=== PATIENT | male | born 1990 | race Caucasian/White ===

== ENCOUNTER 2018-12-27 00:11 | Emergency (ER) | payer OTHER ==
[~2018-12-27] VITALS: Ht 175.3 cm; Wt 86.2 kg
[2018-12-27] MEDS ORDERED: OMEPRAZOLE20 MG PO (00:26)
[2018-12-27] MEDS ORDERED: SERT100 PO (00:26)
[2018-12-27] MEDS ORDERED: Indomethacin50 MG PO (00:27)
[2018-12-27] MEDS ORDERED: TOPI100 PO (00:28)
[2018-12-27] MEDS ORDERED: CYCL10 PO (00:28)
[2018-12-27] MEDS ORDERED: Benadryl 50 mg50 MG PO (00:29)
[2018-12-27] MEDS ORDERED: Prednisone20 MG PO (01:50)
== END 2018-12-27 02:05 | disposition home or self-care (01) ==
LOC: ER 00:11
DX: M77.42 Metatarsalgia, left foot (principal); M79.675 Pain in left toe(s); F32.9 Major depressive disorder, single episode, unspecified; J45.909 Unspecified asthma, uncomplicated; Z88.0 Allergy status to penicillin; Z79.899 Other long term (current) drug therapy
CPT/HCPCS: 73630; 99283-25; J7512

== ENCOUNTER → 2019-03-04 | Outpatient (CLI) | payer OTHER ==
[~2019-03-04] MED LIST: Benadryl 50 mg50 MG PO; CYCL10 PO; Indomethacin50 MG PO; OMEPRAZOLE20 MG PO; Prednisone20 MG PO; SERT100 PO; TOPI100 PO
== END | disposition home or self-care (01) ==
LOC: LAB SHORT 12:30 → LAB 12:30
DX: R31.9 Hematuria, unspecified (principal)
CPT/HCPCS: 87086

== ENCOUNTER 2019-06-02 15:16 | Inpatient (IN) | payer OTHER ==
[~2019-06-02] VITALS: Ht 170.2 cm; Wt 128.8 kg
[2019-06-02] MEDS ORDERED: LISI20 PO (15:45)
[2019-06-02] MEDS ORDERED: DIPHEDRYL PO (15:45)
[2019-06-02] MEDS ORDERED: Hydroxyzine HCl50 MG PO (15:45)
[2019-06-02] MEDS ORDERED: Zoloft100 MG PO (15:45)
[2019-06-02] MEDS ORDERED: TOPI15C (15:46)
[2019-06-02] MEDS ORDERED: OMEPRAZOLE20 MG (15:46)
[2019-06-02] MEDS ORDERED: TRIDERM28.4 GM (15:46)
[2019-06-02 15:48] LABS: BASOPHILS ABSOLUTE AUTO 0.08 K/mm3 (0.00-0.23); BASOPHILS PERCENT AUTO 0 % (0-2); EOSINOPHILS PERCENT AUTO 0 % (0-6); Hematocrit 51.4 % (37.0-53.0); Hemoglobin 16.7 g/dL (13.5-17.5); IMMATURE GRAN ABSOLUTE AUTO 0.24 K/mm3 (0.00-0.10); IMMATURE GRAN PERCENT AUTO 1 % (0-1); LYMPHOCYTES ABSOLUTE AUTO 1.06 K/mm3 (0.84-5.20); LYMPHOCYTES PERCENT AUTO 4 % (21-46); MONOCYTES PERCENT AUTO 4 % (4-13); Mean Corpuscular HGB 28.3 pg (26.0-34.0); Mean Corpuscular HGB Conc 32.5 g/dL (31.5-36.5); Mean Corpuscular Volume 87 fL (80-100); Mean Platelet Volume 9.7 fL (9.1-12.4); NEUTROPHILS ABSOLUTE AUTO 23.82 K/mm3 (1.96-9.15); NEUTROPHILS PERCENT AUTO 91 % (41-73); Platelet Count 329 K/mm3 (150-400); RDW Coefficient Variation 13.5 % (11.7-14.2); RDW Standard Deviation 43.3 fL (35.1-46.3); Red Blood Cell Count 5.91 M/mm3 (4.30-5.90)
[2019-06-02 16:03] LABS: Bilirubin, Total 0.6 mg/dL (0.1-1.0); Bun/Creatinine Ratio 7.5 (12.0-20.0); Calcium, Blood 9.4 mg/dL (8.5-10.1); Creatinine, Blood 3.47 mg/dL (0.60-1.20); Globulin, Blood 4.2 g/dL (2.2-4.0); Potassium, Blood 4.6 mmol/L (3.5-5.5); Total Protein, Blood 8.2 g/dL (6.4-8.2)
[2019-06-02 16:56] LABS: Source, Urine Clean Catch
[2019-06-02 17:01] LABS: Blood, Urine 3+ (Neg); Glucose Qualitative, Urine 1+ (Neg); Ketones, Urine 1+ (Neg); Leukocyte Esterase, Urine 1+ (Neg); Nitrite, Urine Pos (Neg); Protein, Urine 4+ (Neg); Specific Gravity, Urine 1.025 (1.003-1.022); Urobilinogen, Urine 1+ (Normal)
[2019-06-02 17:11] LABS: Bilirubin, Urine 2+ (Neg)
[2019-06-02 17:35] LABS: Appearance, Urine Cloudy (Clear); Color, Urine Amber (P-Yellow)
[2019-06-02 17:55] LABS: Amorphous Light (0-Heavy); Bacteria Many /hpf; Calcium Oxalate Crystals Mod /hpf; Squamous Epithelial Cells Mod /hpf (Few)
[2019-06-02 18:53] LABS: International Normalized Ratio 1.05; Prothrombin Time Results 11.1 Sec (9.7-11.5)
[2019-06-02 19:27] LABS: BASOPHILS ABSOLUTE AUTO 0.06 K/mm3 (0.00-0.23); BASOPHILS PERCENT AUTO 0 % (0-2); EOSINOPHILS ABSOLUTE AUTO 0.01 K/mm3 (0.00-0.68); EOSINOPHILS PERCENT AUTO 0 % (0-6); Hematocrit 50.3 % (37.0-53.0); Hemoglobin 16.1 g/dL (13.5-17.5); IMMATURE GRAN ABSOLUTE AUTO 0.17 K/mm3 (0.00-0.10); IMMATURE GRAN PERCENT AUTO 1 % (0-1); LYMPHOCYTES ABSOLUTE AUTO 1.35 K/mm3 (0.84-5.20); LYMPHOCYTES PERCENT AUTO 6 % (21-46); MONOCYTES ABSOLUTE AUTO 0.83 K/mm3 (0.16-1.47); MONOCYTES PERCENT AUTO 4 % (4-13); Mean Corpuscular Volume 88 fL (80-100); Mean Platelet Volume 9.8 fL (9.1-12.4); NEUTROPHILS ABSOLUTE AUTO 20.65 K/mm3 (1.96-9.15); NEUTROPHILS PERCENT AUTO 90 % (41-73); Platelet Count 296 K/mm3 (150-400); RDW Coefficient Variation 13.6 % (11.7-14.2); RDW Standard Deviation 43.7 fL (35.1-46.3); Red Blood Cell Count 5.74 M/mm3 (4.30-5.90); White Blood Cell Count 23.07 K/mm3 (4.00-11.30)
--- NOTE | 2019-06-02 21:55 | NUR ---
REFLUX LACTIC ACID ELEVATED UP TO 2.7. CALL PALCED TO MD, CURRENT VS AND ORDERS REV W/MD. PLAN TO CONT CURRENT ORDERS.
[2019-06-02 22:43] LABS: Adenovirus F 40/41 Not Detected (NOT DETECT); Astrovirus Not Detected (NOT DETECT); Campylobacter Sp Detected (NOT DETECT); Cryptosporidium Not Detected (NOT DETECT); Cyclospora Cayetanensis Not Detected (NOT DETECT); E. Coli O157 Not Detected (NOT DETECT); Entamoeba Histolytica Not Detected (NOT DETECT); Enteroaggregative E. coli-EAEC Not Detected (NOT DETECT); Enteropathogenic E. coli-EPEC Not Detected (NOT DETECT); Enterotoxigenic E. coli-ETEC Not Detected (NOT DETECT); Giardia Lamblia Not Detected (NOT DETECT); Norovirus GI/GII Not Detected (NOT DETECT); Plesiomonas Shigelloides Not Detected (NOT DETECT); Rotavirus A Not Detected (NOT DETECT); Salmonella Sp Detected (NOT DETECT); Sapovirus Not Detected (NOT DETECT); Shiga Toxin-prod E. coli-STEC Not Detected (NOT DETECT); Shigella/Enteroin E. coli-EIEC Not Detected (NOT DETECT); Vibrio Cholerae Not Detected (NOT DETECT); Vibrio Sp Not Detected (NOT DETECT); Yersinia Enterocolitica Not Detected (NOT DETECT)
[2019-06-03 04:50] LABS: BASOPHILS ABSOLUTE AUTO 0.05 K/mm3 (0.00-0.23); BASOPHILS PERCENT AUTO 0 % (0-2); EOSINOPHILS PERCENT AUTO 0 % (0-6); Hematocrit 46.2 % (37.0-53.0); IMMATURE GRAN ABSOLUTE AUTO 0.06 K/mm3 (0.00-0.10); IMMATURE GRAN PERCENT AUTO 0 % (0-1); LYMPHOCYTES ABSOLUTE AUTO 1.02 K/mm3 (0.84-5.20); LYMPHOCYTES PERCENT AUTO 7 % (21-46); MONOCYTES ABSOLUTE AUTO 0.88 K/mm3 (0.16-1.47); MONOCYTES PERCENT AUTO 6 % (4-13); Mean Corpuscular HGB 27.9 pg (26.0-34.0); Mean Corpuscular HGB Conc 32.5 g/dL (31.5-36.5); Mean Corpuscular Volume 86 fL (80-100); Mean Platelet Volume 9.8 fL (9.1-12.4); NEUTROPHILS ABSOLUTE AUTO 12.02 K/mm3 (1.96-9.15); NEUTROPHILS PERCENT AUTO 86 % (41-73); Platelet Count 256 K/mm3 (150-400); RDW Coefficient Variation 13.4 % (11.7-14.2); RDW Standard Deviation 42.4 fL (35.1-46.3); Red Blood Cell Count 5.38 M/mm3 (4.30-5.90); White Blood Cell Count 14.03 K/mm3 (4.00-11.30)
[2019-06-03 05:08] LABS: Albumin, Blood 3.1 g/dL (3.4-5.0); Albumin/Globulin Ratio 0.8 (0.8-1.8); Bilirubin, Total 0.4 mg/dL (0.1-1.0); Bun/Creatinine Ratio 15.8 (12.0-20.0); Calcium, Blood 8.6 mg/dL (8.5-10.1); Creatinine, Blood 1.65 mg/dL (0.60-1.20); Globulin, Blood 3.7 g/dL (2.2-4.0); Potassium, Blood 4.4 mmol/L (3.5-5.5); Total Protein, Blood 6.8 g/dL (6.4-8.2)
--- NOTE | 2019-06-03 06:39 | NUR ---
PT VSS T/O NIGHT. PT HAD NO C/O N/V, CONT TO HAVE SEVERAL LOOSE STOOLS. PT DENIED PAIN W/URINATION. PT FRANKIE CLEAR LIQ PO. IVF CONT PER ORDERS. PT UP IN ROOM W/SBA PRN. PT USING CALL LIGHT FOR ASSISTANCE, WILL CONT TO MONITOR UNTIL REP GIVEN TO ONCOMING RN.
[2019-06-03] MEDS ORDERED: ACET500 PO (10:45)
[2019-06-03] MEDS ORDERED: FAMO20 PO (10:46)
[2019-06-03] MEDS ORDERED: Culturelle1 CAP PO (10:47)
[2019-06-03] MEDS ORDERED: LEVOFLOXACIN750 MG PO (10:47)
[2019-06-03] MEDS ORDERED: ONDA4ODT MM (10:48)
[2019-06-03] MEDS ORDERED: GUAI600T33 PO (10:48)
[2019-06-03] MEDS ORDERED: TYLECOD3 PO (10:49)
--- NOTE | 2019-06-03 11:29 | NUR ---
DISCHARGE PT EDUCATED ON AND RECEIVED DC INSTRUCTIONS AND VERBALIZED AN UNDERSTANDING. HARD RX FOR TYLENOL #3 GIVEN TO PT AND ALL OTHER NEW RX FAXED OVER TO [facility] PER PT REQUEST. IVS DC'D AND TELE BOX RETURNED TO PCU. PT GETTING DRESSED AND GATHERING ALL PERSONAL BELONGINGS AND WAITING FOR RIDE HOME.
== END 2019-06-03 12:21 | disposition home or self-care (01) | DRG 872 ==
LOC: ER 15:16 → ERHOLD 17:37 → SURS 20:35
PROVIDERS: Physician Assistant; ADMIT Family Medicine
DX: A02.1 Salmonella sepsis (principal); N17.9 Acute kidney failure, unspecified; D68.61 Antiphospholipid syndrome; N39.0 Urinary tract infection, site not specified; Z68.42 Body mass index [BMI] 45.0-49.9, adult; R65.20 Severe sepsis without septic shock; I95.9 Hypotension, unspecified; I10 Essential (primary) hypertension; F90.9 Attention-deficit hyperactivity disorder, unspecified type; F32.9 Major depressive disorder, single episode, unspecified; E66.9 Obesity, unspecified; K52.9 Noninfective gastroenteritis and colitis, unspecified; Z86.718 Personal history of other venous thrombosis and embolism; Z88.0 Allergy status to penicillin; Z88.8 Allergy status to other drugs, medicaments and biological substances
CPT/HCPCS: 0097U; 36415; 80053; 81001; 83605; 83690; 84145; 85025; 85610; 85730; 87040; 87086; 93005; 93010; 96361; 96374; 99285-25; J1650; J1956; J2405; J7120

== ENCOUNTER 2019-07-20 05:41 | Inpatient (IN) | payer OTHER ==
[~2019-07-20] VITALS: Ht 177.8 cm; Wt 128.8 kg
[~2019-07-20 05:41] MED LIST changes: +ACET500 PO; +Culturelle1 CAP PO; +DIPHEDRYL PO; +FAMO20 PO; +GUAI600T33 PO; +Hydroxyzine HCl50 MG PO; +LEVOFLOXACIN750 MG PO; +LISI20 PO; +OMEPRAZOLE20 MG; +ONDA4ODT MM; +TOPI15C; +TRIDERM28.4 GM; +TYLECOD3 PO; +Zoloft100 MG PO
[2019-07-20 05:59] LABS: PCO2 Arterial 38.2 mmHg (35-45); PO2 Arterial 128 mmHg (80-100); pH Blood Arterial 7.31 (7.35-7.45)
[2019-07-20 06:00] LABS: Calcium, Ionized (POC) 1.18 mmol/L (1.10-1.46); Chloride (POC) 103 mmol/L (98-108); Creatinine (POC) 0.9 mg/dL (0.8-1.3); Glucose (ISTAT POC) 137 mg/dL (70-99); Hemoglobin (POC) 17.3 g/dL (13.5-17.5); Potassium (POC) 3.3 mmol/L (3.5-5.5); Sodium (POC) 139 mmol/L (135-148); Total CO2 (POC) 20 mmol/L (21-32)
[2019-07-20 06:05] LABS: BASOPHILS ABSOLUTE AUTO 0.05 K/mm3 (0.00-0.23); BASOPHILS PERCENT AUTO 0 % (0-2); EOSINOPHILS ABSOLUTE AUTO 0.08 K/mm3 (0.00-0.68); EOSINOPHILS PERCENT AUTO 1 % (0-6); Hematocrit 50.3 % (37.0-53.0); Hemoglobin 16.7 g/dL (13.5-17.5); IMMATURE GRAN ABSOLUTE AUTO 0.04 K/mm3 (0.00-0.10); IMMATURE GRAN PERCENT AUTO 0 % (0-1); LYMPHOCYTES ABSOLUTE AUTO 3.19 K/mm3 (0.84-5.20); LYMPHOCYTES PERCENT AUTO 26 % (21-46); MONOCYTES PERCENT AUTO 7 % (4-13); Mean Corpuscular HGB Conc 33.2 g/dL (31.5-36.5); Mean Corpuscular Volume 84 fL (80-100); Mean Platelet Volume 10.1 fL (9.1-12.4); NEUTROPHILS ABSOLUTE AUTO 8.11 K/mm3 (1.96-9.15); NEUTROPHILS PERCENT AUTO 66 % (41-73); Platelet Count 283 K/mm3 (150-400); RDW Coefficient Variation 12.5 % (11.7-14.2); Red Blood Cell Count 5.97 M/mm3 (4.30-5.90); White Blood Cell Count 12.27 K/mm3 (4.00-11.30)
[2019-07-20 06:21] LABS: Source, Urine Catheter
[2019-07-20 06:25] LABS: Bilirubin, Urine Neg (Neg); Blood, Urine 5+ (Neg); Glucose Qualitative, Urine Neg (Neg); Ketones, Urine Neg (Neg); Leukocyte Esterase, Urine 1+ (Neg); Nitrite, Urine Neg (Neg); Protein, Urine 3+ (Neg); Specific Gravity, Urine 1.015 (1.003-1.022); Urobilinogen, Urine NORM (Normal)
[2019-07-20 06:26] LABS: Appearance, Urine Hazy (Clear); Color, Urine Red (P-Yellow)
[2019-07-20 06:29] LABS: Alanine Aminotransfer (ALT/SGP 39 U/L (12-78); Albumin, Blood 3.8 g/dL (3.4-5.0); Alk Phos 106 U/L (50-136); Anion Gap 12 mmol/L (6-16); Aspartate Aminotrans (AST/SGOT 31 U/L (12-37); Bilirubin, Total 0.5 mg/dL (0.1-1.0); Blood Urea Nitrogen 20 mg/dL (8-24); Bun/Creatinine Ratio 24.7 (12.0-20.0); CO2, Blood 20 mmol/L (21-32); CPK Creatine Kinase 156 U/L (39-308); Calcium, Blood 8.7 mg/dL (8.5-10.1); Chloride, Blood 106 mmol/L (98-108); Creatinine, Blood 0.81 mg/dL (0.60-1.20); Ethanol (Alcohol), Blood, Med <3 mg/dL; Globulin, Blood 3.9 g/dL (2.2-4.0); Glomerular Filtration Rate >60 (60-); Glucose, Blood 128 mg/dL (70-99); Magnesium, Blood 1.9 mg/dL (1.6-2.4); Potassium, Blood 3.2 mmol/L (3.5-5.5); Salicylate <1.7 mg/dL (2.8-20.0); Sodium, Blood 138 mmol/L (136-145); Total Protein, Blood 7.7 g/dL (6.4-8.2); Troponin I <0.015 ng/mL (0.000-0.040)
[2019-07-20 06:39] LABS: Acetaminophen, Random <2.0 ug/mL (10.0-30.0); Creatine Kinase MB <1.0 ng/mL (0.0-3.6); Creatine Kinase MB Index Unable to Calculate (0.0-4.0)
[2019-07-20 06:50] LABS: U Amphetamine Screen Not Detected; U Barbituate Screen Not Detected; U Benzodiazapine Screen Not Detected; U Buprenorphine Screen Not Detected; U Cannabinoids Screen Not Detected; U Cocaine Screen Not Detected; U Methadone Screen Not Detected; U Methamphetamine Screen Not Detected; U Opiates Screen Not Detected; U Oxycodone Screen Not Detected; U Phencyclidine Screen Not Detected; U Propoxyphene Screen Not Detected
[2019-07-20 06:59] LABS: Bacteria Mod /hpf; Red Blood Cells, Urine TNTC /hpf (0-2); Squamous Epithelial Cells Not Seen /hpf (Few)
--- NOTE | 2019-07-20 07:12 | NUR ---
PT TO ICU @ 0635 WITH ED RN AND RT. PT INTUBATED AND SEDATED, VENT SET TO AC 16/500/5/35%, O2 SATURATIONS 95%. MONTOR SHOWS SINUS TACH, HR 110-130'S, PT HYPTERTENSIVE, SBP 160'S. PT AFEBRILE. OG IN PLACE, CLAMPED. STONE IN PLACE DRAINING YELLOW URINE.
--- NOTE | 2019-07-20 07:16 | NUR ---
REPORT GIVEN TO ADENIKE JOHNSON.
--- NOTE | 2019-07-20 07:31 | NUR ---
CALLED POISON CONTROL AND LET THEM KNOW OF SALICYLATE AND ACETAMINOPHEN LEVEL. NO SUGGESTIONS AT THIS TIME.
--- NOTE | 2019-07-20 08:30 | NUR ---
INITIAL ASSESSMENT PATIENT INTUBATED AND SEDATED. PATIENT RESPONDING TO CARE AND PAINFUL STIMULI. PATIENT HAS STRONG, GROSS MOVEMENTS OF EXTREMITIES. PATIENT HAS NO SIGNS OF PAIN OR DISCOMFORT NOTED AT THIS TIME. PATIENT AFEBRILE. PATIENT SATTING 90% AND GREATER ON VENT SETTINGS OF AC 16, TV 500, PEEP 5, 35% FIO2. LUNG SOUNDS CLEAR THROUGHOUT. PATIENT IN ST, HR 1-TEENS TO 120S. BP STABLE. PULSES STRONG. ABDOMEN SOFT, NONDISTENDED, WITH HYPOACTIVE BS NOTED. DATE OF LAST BM UNKNOWN. OG TO LIS- NO DRAINAGE NOTED. TEMP PROBE STONE IN PLACE; DRAINING CAM COLORED URINE. SKIN APPEARS WNL. PROPOFOL INFUSING AT 50 MCG/ KG/ MINUTE, NS INFUSING AT 100 MLS/ HOUR. BED LOW, CALL LIGHT IN REACH. WILL CONTINUE TO MONITOR PATIENT FREQUENTLY THROUGHOUT SHIFT.
--- NOTE | 2019-07-20 09:00 | NUR ---
PATIENT'S MOTHER, JESUS REDDY, AND ANOTHER FAMILY MEMBER SHOWED UP TO CHECK ON PATIENT. MOTHER STATED THAT THE GENETICS PHYSICIAN SHOWED UP AT HER HOUSE EARLY THIS AM "BANGING ON HER DOOR". MOTHER STATED SHE DID NOT KNOW WHY GENETICS PHYSICIAN THERE BUT FOUND OUT THAT THE PATIENT MUST HAVE CALLED THEM CLAIMING THAT HE TOOK SOME PILLS. PATIENT'S MOTHER UPDATED ON PATIENT CONDITION. MOTHER STAYED FOR SHORT TIME AND STATED SHE WOULD BE BACK LATER AFTER WORK TO CHECK BACK UP ON PATIENT.
--- NOTE | 2019-07-20 09:38 | NUR ---
SPOKE WITH POISON CONTROL. UPDATED ON PATIENT CONDITION. POISON CONTROL RECOMMENDED ANOTHER EKG THIS AFTERNOON. POISON CONTROL ALSO STATED TO KEEP MAG OVER 2 AND POTASSIUM OVER 4. RECOMMENDED TO REPEAT ASA AND ACETAMINOPHEN LEVEL AGAIN AROUND 1000 THIS AM.
--- NOTE | 2019-07-20 11:30 | NUR ---
DR. KWON IN ROOM TO SEE PATIENT. UPDATED ON PATIENT STATUS. INFORMED THAT PATIENT WAS THE ONE THAT CALLED CHARGE MASTER SPECIALIST ABOUT HIS OVERDOSE. INFORMED THAT POISON CONTROL RECOMMENDS TO KEEP MAG LEVEL OVER 2 AND POTASSIUM LEVEL OVER 4. INFORMED THAT POTASSIUM LEVEL 3.3 THIS AM AND THAT PATIENT RECEIVING 40 MEQ KCL THIS AM. INFORMED THAT NO MAG LEVEL WAS ORDERED FOR THIS AM. STATED SHE WOULD ORDER FOR ANOTHER 20 MEQ KCL AND MAG NOW AND LEVELS CAN BE RECHECKED AGAIN TOMORROW AM. INFORMED THAT POISON CONTROL ALSO RECOMMENDED FOR REPEAT EKG THIS AFTERNOON WELL REPEAT ASA AND TYLENOL LEVELS. STATED NO NEED FOR ASA AND TYLENOL LEVEL REDRAWS BUT THAT WE WILL REPEAT EKG THIS AFTERNOON. STATED TO KEEP PATIENT SEDATED AND COMFORTABLE AND THAT NO WEAN OR SEDATION VACATION NEEDED IN AM SHE WILL MOST LIKELY EXTUBATE WHEN SHE GETS HERE TOMORROW AM.
--- NOTE | 2019-07-20 12:00 | NUR ---
PATIENT REMAINS INTUBATED AND SEDATED. PATIENT ON 45 MCG/ KG HOUR OF PROPOFOL. PATIENT AFEBRILE. PATIENT REMAINS SATTING 90% AND GREATER ON VENT SETTINGS OF AC 16, TV 500, PEEP 5, 25% FIO2. PATIENT IN SR, HR IN THE 90S. BP SOFT TO STABLE. STONE DRAINING CAM COLORED URINE WITH SEDIMENT NOTED. PATIENT RECEIVING MAG REPLACEMENT OF 2G FOR LEVEL OF 1.7. PATIENT HAS NO SIGNS OF PAIN OR DISCOMFORT AT THIS TIME. NO OTHER ACUTE CHANGES TO NOTE ON AT THIS TIME. WILL CONTINUE TO MONITOR.
[2019-07-20 12:06] LABS: Base Excess Venous -5.3 mmol/L; PCO2 Venous 31.9 mmHg (38-42); PO2 Venous 111 mmHg (38-42)
--- NOTE | 2019-07-20 13:42 | NUR ---
POISON CONTROL CALLED TO CHECK STATUS. UPDATED ON LAB RESULTS AND DOCTORS ORDERS.
--- NOTE | 2019-07-20 16:00 | NUR ---
PATIENT REMAINS INTUBATED AND SEDATED. PATIENT ON PROPOFOL AT 45 MCG/ KG/ MINUTE. PATIENT AFEBRILE. PATIENT REMAINS SATTING 90% AND GREATER ON SAME VENT SETTINGS. PATIENT IN SR, HR IN THE 80S. BP STABLE. NO OTHER ACUTE CHANGES TO NOTE ON AT THIS TIME. PATIENT APPEARS TO BE COMFORTABLE WITHOUT PAIN AT THIS TIME. WILL CONTINUE TO MONITOR.
--- NOTE | 2019-07-20 17:17 | NUR ---
CALLED AND INFORMED DR. KWON THAT EKG SHOWED INCREASE IN QTC FROM 436 TO 476. ORDERED FOR REPEAT EKG IN AM.
--- NOTE | 2019-07-20 18:37 | NUR ---
SHIFT SUMMARY PATIENT REMAINED INTUBATED AND SEDATED. PATIENT REMAINED RESPONDING TO NURSING CARE AND PAINFUL STIMULI. PATIENT CONTINUED TO HAVE STRONG GROSS MOVEMENTS OF ALL EXTREMITIES. PATIENT REMAINED AFEBRILE. PATIENT GIVEN PRN FENTANYL FOR SIGNS OF PAIN. PATIENT REMAINED SATTING 90% AND GREATER ON AC 16, TV 500, PEEP 5, AND 25% FIO2. PATIENT SR TO ST, HR 90S TO 120S. BP REMAINED SOFT TO STABLE. PATIENT DID NOT HAVE BM THIS SHIFT. OG REMAINED TO LIS; NO DRAINAGE NOTED. STONE DRAINED ADEQUATE AMOUNT OF CAM COLORED URINE WITH SEDIMENT NOTED. SKIN REMAINED WNL. PATIENT REPOSITIONED Q2H. PROPOFOL INFUSING AT 45 MCG/ KG/ MINUTE, NS AT 100 MLS/ HOUR. PATIENT RECEIVED 80 MEQ KCL AND 2 G MAG THIS SHIFT. MOTHER HERE TO VISIT IN THE AM. REPORT WILL BE GIVEN TO ONCOMING DATA REVIEWER NURSE SHORTLY.
--- NOTE | 2019-07-20 21:00 | NUR ---
ASSUMPTION OF CARE ASSUMED CARE OF PT @ 1900. PT INTUBATED AND SEDATED, VENT SET TO AC 16/500/5/25%, LS CLEAR, O2 SATURATIONS MAINTAINED > 95%. MONITOR SHOWS SINUS RHYTHM, RATE 80'S, BP STABLE. PT BECOMES AGITATED WITH NURSING CARE, DOES NOT FOLLOW COMMANDS, PULLS AT RESTRAINTS, THIBODEAUX. OG TO INTERMITTENT SUCTION, NO OUTPUT AT THIS TIME. STONE DRAINING YELLOW URINE WITH SEDIMENT. PROPOFOL GTT INFUSING, SEE FLOWSHEET.
--- NOTE | 2019-07-20 21:45 | NUR ---
SPOKE WITH POISON CONTROL CENTER, UPDATED ON PTS CURRENT STATUS, VS, LABS, AND TREATMENTS.
[2019-07-21 03:35] LABS: BASOPHILS ABSOLUTE AUTO 0.05 K/mm3 (0.00-0.23); BASOPHILS PERCENT AUTO 1 % (0-2); EOSINOPHILS ABSOLUTE AUTO 0.22 K/mm3 (0.00-0.68); EOSINOPHILS PERCENT AUTO 3 % (0-6); Hematocrit 42.6 % (37.0-53.0); Hemoglobin 13.8 g/dL (13.5-17.5); IMMATURE GRAN ABSOLUTE AUTO 0.03 K/mm3 (0.00-0.10); IMMATURE GRAN PERCENT AUTO 0 % (0-1); LYMPHOCYTES PERCENT AUTO 25 % (21-46); MONOCYTES PERCENT AUTO 10 % (4-13); Mean Corpuscular HGB 27.9 pg (26.0-34.0); Mean Corpuscular HGB Conc 32.4 g/dL (31.5-36.5); Mean Corpuscular Volume 86 fL (80-100); NEUTROPHILS ABSOLUTE AUTO 5.47 K/mm3 (1.96-9.15); NEUTROPHILS PERCENT AUTO 62 % (41-73); Platelet Count 244 K/mm3 (150-400); RDW Coefficient Variation 13.2 % (11.7-14.2); RDW Standard Deviation 41.1 fL (35.1-46.3); Red Blood Cell Count 4.94 M/mm3 (4.30-5.90); White Blood Cell Count 8.87 K/mm3 (4.00-11.30)
[2019-07-21 03:58] LABS: Alanine Aminotransfer (ALT/SGP 28 U/L (12-78); Alk Phos 85 U/L (50-136); Anion Gap 8 mmol/L (6-16); Aspartate Aminotrans (AST/SGOT 15 U/L (12-37); Bilirubin, Total 0.5 mg/dL (0.1-1.0); Blood Urea Nitrogen 14 mg/dL (8-24); Bun/Creatinine Ratio 13.1 (12.0-20.0); CO2, Blood 20 mmol/L (21-32); Calcium, Blood 8.4 mg/dL (8.5-10.1); Chloride, Blood 115 mmol/L (98-108); Creatinine, Blood 1.07 mg/dL (0.60-1.20); Globulin, Blood 2.9 g/dL (2.2-4.0); Glomerular Filtration Rate >60 (60-); Glucose, Blood 88 mg/dL (70-99); Magnesium, Blood 2.4 mg/dL (1.6-2.4); Phosphorus, Blood 3.7 mg/dL (2.5-4.9); Potassium, Blood 3.8 mmol/L (3.5-5.5); Sodium, Blood 143 mmol/L (136-145); Total Protein, Blood 5.9 g/dL (6.4-8.2)
--- NOTE | 2019-07-21 06:03 | NUR ---
SHIFT SUMMARY PT REMAINS INTUBATED AND SEDATED, VENT SET TO AC 16/500/5/25%, O2 SATURATIONS MAINTAINED ABOVE 95%. MONITOR SHOWS SINUS RHYTHM, HR 70'S, BP STABLE, EKG COMPLETED THIS AM, SEE PTS CHART. TMAX 100.9, TYLENOL PROVIDED, PT NOW AFEBRILE. PT RESTS WELL WITH NO TO LOW STIMULATION BUT BECOMES VERY AGITATED WITH NURSING CARE, PULLS AT RESTRAINTS, DOES NOT FOLLOW COMMANDS, THIBODEAUX. NO OUTPUT FROM OG THIS SHIFT, SET TO INTERMITTENT SUCTION. PROPOFOL GTT INFUSING (SEE FLOWSHEET). MORNING LABS SHOWED LOW POTASSIUM, REPLACEMENT CURRENTLY INFUSING.
--- NOTE | 2019-07-21 08:00 | NUR ---
INITIAL ASSESSMENT PATIENT INTUBATED AND SEDATED. PATIENT RESPONDS TO NURSING CARE AND PAINFUL STIMULI. PATIENT AFEBRILE. NO SIGNS OF PAIN OR DISCOMFORT NOTED AT THIS TIME. PATIENT HAS STRONG GROSS MOVEMENTS. PATIENT SATTING 90% AND GREATER ON AC 16, TV 500, PEEP 5, FIO2 25%. LUNGS CLEAR THROUGHOUT. PATIENT IN SR, HR 70S TO 80S. BP STABLE. PULSES STRONG. QTC 485 THIS AM. ABDOMEN SOFT, NONDISTENDED, WITH HYPOACTIVE BS NOTED. OG TO LIS; NO DRAINAGE NOTED. STONE DRAINING CLOUDY, CAM COLORED URINE WITH SEDIMENT NOTED. SKIN WNL. NS TKO. PROPOFOL INFUSING AT 50 MCG/ KG/ MINUTE. PATIENT RECEIVING 40 MEQ KCL THIS AM FOR POTASSIUM OF 3.8, POISON CONTROL RECOMMENDED TO KEEP 4 OR ABOVE. BED LOW, CALL LIGHT IN REACH. WILL CONTINUE TO MONITOR PATIENT FREQUENTLY THROUGHOUT SHIFT.
--- NOTE | 2019-07-21 10:00 | NUR ---
DR. KWON UPDATED ON PATIENT CONDITION. INFORMED OF EKG QTC OF 485. INFORMED THAT PATIENT RECEIVED MULTIPLE FENTANYL PUSHES ON FLIGHT RADIO OFFICER FOR INCREASED AGITATION. INFORMED THAT POTASSIUM 3.8 THIS AM, PHOS 3.7, CALCIUM 8.4, AND MAG 2.4. DOCTOR INFORMED THAT PATIENT WAS GIVEN 40 MEQ KCL REPLACEMENT TODAY. NO ORDERS RECEIVED FOR FURTHER ELECTROLYTE REPLACEMENT FOR AM LAB RESULTS.
--- NOTE | 2019-07-21 11:26 | NUR ---
POISON CONTROL CALLED FOR UPDATE ON PATIENT. NO RECOMMENDATIONS AT THIS TIME.
--- NOTE | 2019-07-21 12:00 | NUR ---
PATIENT REMAINS INTUBATED AND SEDATED. PATIENT AFEBRILE. PATIENT REMAINS SATTING 90% AND GREATER ON SAME VENT SETTINGS. URINE FROM STONE HAS MORE DARK GREEN COLOR TO IT NOW. PATIENT IN SR, HR IN THE 70S. BP STABLE. PATIENT DOES NOT APPEAR IN PAIN OR UNCOMFORTABLE AT THIS TIME. NO OTHER ACUTE CHANGES TO NOTE ON AT THIS TIME. WILL CONTINUE TO MONITOR.
--- NOTE | 2019-07-21 13:30 | NUR ---
PATIENT EXTUBATED. PATIENT FOLLOWING SIMPLE COMMANDS. PATIENT SATTING 90% AND GREATER ON RA. VSS.
--- NOTE | 2019-07-21 13:30 | NUR ---
PATIENT'S MOTHER CALLED TO CHECK UP ON PATIENT JUST EXTUBATING. INFORMED THAT HE WAS BEING EXTUBATED RIGHT AT THAT MOMENT. MOTHER STATED SHE WOULD CALL BACK AGAIN TO CHECK ON PATIENT.
--- NOTE | 2019-07-21 14:36 | NUR ---
PATIENT RECEIVED FLU SHOT IN 2018.
--- NOTE | 2019-07-21 14:38 | NUR ---
SUICIDE RISK ASSESSMENT PERFORMED ON PATIENT. PATIENT ALERT AND ORIENTED X 4. PATIENT ASKED WHY HE WAS BROUGHT INTO THE HOSPITAL AND HE STATED "BECAUSE I TOOK A BUNCH OF PILLS BECAUSE I WANTED TO KILL MYSELF". PATIENT ASKED IF HE STILL FEELS LIKE KILLING HIMSELF AND HE STATED "YES". PATIENT ASKED WHY HE WANTS TO KILL HIMSELF AND HE STATED "BECAUSE I AM SAD AND NO ONE CARES ABOUT ME". PATIENT ASKED HOW LONG HE HAS FELT DEPRESSED AND WANTED TO HURT HIMSELF, PATIENT STATED "FOR A WHILE". PATIENT STATED THAT HE STOPPED TAKING HIS HOME DEPRESSION MEDS ABOUT A MONTH AGO BECAUSE "THEY DON'T WORK". PATIENT STATED HE HAS TRIED TO "CUT HIMSELF" AND TOOK MORE PILLS AROUND A WEEK AGO. DR. MCKEON CALLED AND INFORMED. PATIENT PLACED ON 2 MD HOLD. 1:1 SITTER PRESENT.
[2019-07-21] MEDS ORDERED: CYCL10 PO (15:20)
--- NOTE | 2019-07-21 16:00 | NUR ---
PATIENT ALERT AND ORIENTED X 4. PATIENT CALM, COOPERATIVE, WITH FLAT AFFECT. PATIENT CONTINUES TO FEEL SUICIDAL. PATIENT HAS STUTTERED SPEECH. PATIENT AFEBRILE. PATIENT HAS GOOD MUSCULAR STRENGTH WITH FULL ROM. PATIENT SATTING 90% AND GREATER ON RA. LUNGS CLEAR T/O. PATIENT IN SR, HR 70S TO 80S. BP STABLE. OG DC'D WHEN PATIENT EXTUBATED. STONE REMOVED. URINAL PLACED AT BEDSIDE. PATIENT HAS NO COMPLAINTS AT THIS TIME. WILL CONTINUE TO MONITOR.
--- NOTE | 2019-07-21 16:45 | NUR ---
TRIED TO CALL PATIENT'S MOTHER TO UPDATE HER ON PATIENT STATUS. PHONE NUMBER IS NOT A WORKING NUMBER.
--- NOTE | 2019-07-21 17:33 | NUR ---
SHIFT SUMMARY PATIENT INTUBATED THIS AM. PATIENT HAS SINCE BEEN EXTUBATED AND HAS BEEN DOING QUITE WELL. PATIENT ALERT AND ORIENTED X 4, CALM , COOPERATIVE. FLAT AFFECT NOTED. PATIENT HAS STUTTERED SPEECH (IS NOTED THAT THIS IS HIS NORMAL). EYES RED. PATIENT STATES THAT HE STILL WANTS TO KILL HIMSELF "BECAUSE HE IS SAD AND NO ONE CARES ABOUT HIM". PATIENT HAS REMAINED AFEBRILE. PATIENT STATES HE HAS CHRONIC BACK PAIN BUT HAS NOT COMPLAINED OF PAIN SINCE BEING EXTUBATED. PATIENT SATTING 90% AND GREATER ON RA. LUNGS CLEAR THROUGHOUT. PATIENT HAS REMAINED IN SR, HR 70S TO 80S. BP STABLE. LASTS QTC 485. NO BM THIS SHIFT. LAST BM ON THE PER PATIENT. PATIENT HAD BEDSIDE SWALLOW EVAL AND PASSED. PATIENT PLACED ON REGULAR DIET. PATIENT HAD ADEQUATE OUTPUT OF CLOUDY, GREEN/YELLOW URINE WITH SEDIMENT NOTED. SKIN WNL. PATIENT NOW ABLE TO REPOSITION HIMSELF. NS INFUSING TKO. PATIENT HAD 40 MEQ OF KCL THIS AM TO KEEP POTASSIUM UP TOWARD 4. PATIENT ON 2 MD HOLD. 1:1 SITTER PRESENT. PATIENT TO HAVE TELEPSYCH CONSULT AT 1900. PATIENT'S MOTHER IS AWARE THAT HE WAS EXTUBATED. PATIENT HAS NO COMPAINTS AT THIS TIME. PATIENT IS SITTING UP IN BED, EATING PUDDING, AND WATCHING TV. WILL CONTINUE TO MONITOR PATIENT FREQUENTLY UNTIL REPORT GIVEN TO ONCOMING IT CONSULTANT NURSE SHORTLY.
--- NOTE | 2019-07-21 17:46 | NUR ---
PATIENT'S MOTHER CALLED TO CHECK UP ON HIM. RECEIVED CORRECT NUMBER FROM MOTHER. MOTHER UPDATED ON PATIENT STATUS. INFORMED THAT PATIENT WILL HAVE TELEPSYCH CONSULT AT 1900 TONIGHT. MOTHER STATED SHE WOULD BE IN TO SEE PATIENT AROUND 2100 TONIGHT.
--- NOTE | 2019-07-21 21:00 | NUR ---
ASSUMPTION OF CARE ASSUMED CARE OF PT AT 1900, PT AWAKE IN BED LISTENING TO MUSIC ON HOSPITAL TV. ALERT AND ORIENTED TO SELF, EVENT, AND FOLLOWING DIRECTIONS, CALM AND COOPERATIVE. PT DENIES SI AT THIS TIME, STS HE HAS STRUGGLED WITH DEPRESSION FOR OVER A YEAR AND HAS MADE ONE PREVIOUS SUICIDE ATTEMPT APPROX 1 WEEK AGO BUT DID NOT SEEK TREATMENT AT THAT TIME. AT THIS TIME PT IS CONCERNED ABOUT MISSING WORK AND NOTIFYING BOSS OF HOSPITALIZATION. TELEPSYCH AT BEGINNING OF SHIFT WITH DR MAKI, EVALUATION IN CHART, DR MAKI RECOMENDS CONSULT FROM LACTATION SPECIALIST AND A FOLLOW UP PSYCH EVAL. PT IS VERY SOFT SPOKEN, SLOW TO RESPOND AND HAS A STUTTER WHICH MOTHER STS IS WORSE THAN NORMAL. PT O2 SATURATIONS > 95% ON RA, HR AND BP STABLE, PT AFEBRILE. TOLERATING PO INTAKE. MOM AND DAD TO ROOM FOR SHORT VISIT, PT INTERACTING WELL WITH FAMILY DURING VISIT. ONE ON ONE SITTER AT DOORWAY MONITORING PT.
--- NOTE | 2019-07-21 23:10 | NUR ---
RECEIVED CALL FROM POISON CONTROL, UPDATED ON PTS STATUS, RECOMENDATIONS REMAIN TO KEEP POTASSIUM AND MAG WNL.
[2019-07-22 06:13] LABS: Anion Gap 6 mmol/L (6-16); Blood Urea Nitrogen 12 mg/dL (8-24); Bun/Creatinine Ratio 12.5 (12.0-20.0); CO2, Blood 20 mmol/L (21-32); Calcium, Blood 8.6 mg/dL (8.5-10.1); Chloride, Blood 115 mmol/L (98-108); Creatinine, Blood 0.96 mg/dL (0.60-1.20); Glomerular Filtration Rate >60 (60-); Glucose, Blood 86 mg/dL (70-99); Magnesium, Blood 2.2 mg/dL (1.6-2.4); Potassium, Blood 3.7 mmol/L (3.5-5.5); Sodium, Blood 141 mmol/L (136-145)
--- NOTE | 2019-07-22 06:14 | NUR ---
SHIFT SUMMARY NO ACUTE EVENTS T/O SHIFT, PT CONTINUES TO DENY SI, REMAINS CALM, COOPERATIVE AND SOFT SPOKEN, RESTED WELL DURING NIGHT. TELEPSYCH AT BEGINNING OF SHIFT RECOMENDS FOLLOW UP PSYCH EVALUATION AND BACK ROLLER CONSULT, TELEPSYCH EVALUATION IN PTS CHART. O2 SATURATIONS MAINTAINED ABOVE 95% ON RA, MONITOR SHOWS SINUS RHYTHM, BP STABLE. PT TOLERATING PO INTAKE, INDEPENDENTLY VOIDS IN URINAL. STATUS CHANGE @ 0555 TO MED NO TELE, HIGH RISK SUICIDE PRECAUTIONS REMAIN AT THIS TIME, ONE ON ONE SITTER CONTINUES TO MONITOR PT.
--- NOTE | 2019-07-22 07:40 | NUR ---
ASSUMED CARE OF PT AT 0700. REPORT FROM RAINE JOHNSON. PT RESTING IN BED. WAKES c VERBAL STIMULI. C/O CHRONIC BACK PAIN. DENIES NEEDS FOR PAIN MEDS. PT A&OX 4. SOFT SPOKEN. C/O PAIN TO THROAT. ICE CHIPS PROVIDED. PT CALM AND COOPERATIVE, FLAT AFFECT. DENIES SI, STATES HE LIVES c MOTHER AND THIS IS A SAFE PLACE FOR HIM. 1:1 OBSERVATION CONTINUES. PLAN FOR [facility], SOCIAL SERVICE CONSULT, AND [facility] CONSULT TODAY. WILL CONTINUE TO MONITOR.
--- NOTE | 2019-07-22 12:37 | NUR ---
Safety Plan partially complete, as much as patient could engage. Pt has a stutter, and stopped talking at times as it appeared to be to difficul;t for him. 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 He did say he attempted suicide 1 week ago, but did not come to hospital, nor told anyone. He reports he does not remember how he got to hospital this time, and did not know if he told his parents of his OD. He did not tell parents of attempt of 1 week ago. He said "they would have tried to sop me if I told them".his He lives with parents and brother. Case reviewed with Christina, Return Clerk. Pt is inconsistent in the information he shares. Reviewed moving his meds or giving them to parents for safety. Also reviewed crisis phone numbers to call nicole divert his thinking from suicide thousht. He reports [facility] Chan at [facility] presribes his meds. Hi behavior appears very unpredictable, and he displays very poor insight. He cannot describe if his mood was worse than usual, or any other symptoms. Elin Byrd M.Ed., [facility]
--- NOTE | 2019-07-22 16:57 | NUR ---
SHIFT SUMMARY NO ACUTE CHANGES THIS SHIFT. PT c FLAT AFFECT. ANSWERS QUESTIONS APPROPRIATELY BUT GIVES SHORT ANSWERS. DOES NOT ELABORATE. NAYANA ALFARO AND ART IN TO SEE PT TODAY. PLAN FOR WATER SAFETY TEACHER TO LOOK FOR INPATIENT PLACEMENT. MOTHER, JESUS, INFORMED AND IN AGREEMENT c PLAN. REQUESTING THAT WE INFORM HER PRIOR TO TRANSPORT SO EITHER HER OR PT'S STEPFATHER CAN FOLLOW PT UP TO ACCEPTING HOSPITAL. [facility] STARTED TODAY. POISON CONTROL SIGNED OFF ON MEDICAL CARE. REPORT TO ONCOMING NURSE.
--- NOTE | 2019-07-22 17:32 | NUR ---
Per admit trigger, I was tasked to meet with Michael to provide education regarding advanced care plannin. As he is hospitalized for a suicide attempt, this referral seems inappropriate. I will remain available to pt and family.
[2019-07-23 04:04] LABS: Albumin, Blood 3.4 g/dL (3.4-5.0); Anion Gap 7 mmol/L (6-16); Blood Urea Nitrogen 15 mg/dL (8-24); Bun/Creatinine Ratio 15.9 (12.0-20.0); CO2, Blood 21 mmol/L (21-32); Calcium, Blood 9.1 mg/dL (8.5-10.1); Chloride, Blood 113 mmol/L (98-108); Creatinine, Blood 0.94 mg/dL (0.60-1.20); Glomerular Filtration Rate >60 (60-); Glucose, Blood 94 mg/dL (70-99); Phosphorus, Blood 3.4 mg/dL (2.5-4.9); Potassium, Blood 3.8 mmol/L (3.5-5.5); Sodium, Blood 141 mmol/L (136-145)
--- NOTE | 2019-07-23 05:09 | NUR ---
PT CONTINUES RESTING QUIETLY, DENIES NEEDS, VITALS REMAIN STABLE, NO ACUTE CHANGES THIS SHIFT, PLAN TO MOVE TO ROOM 348 THIS AM.
--- NOTE | 2019-07-23 06:04 | NUR ---
SHIFT SUMMARY PT TRANSFER FROM ICU 14, ASSUMED CARE OF PT @0630. NO ACUTE CHANGES. DENIES ANY CURRENT SI THOUGHTS OR PLANS. AOX4. VSS. DENIES N/V, DYSPNEA. REPORTS MILD SORE THROAT FROM BEING INTUBATED. WILL NOTIFY MOTHER OF PT TRANSFER. CALL LIGHT IN REACH & 1:1 SITTER IN FROM FOR HIGH RISK SI. WCTM.
--- NOTE | 2019-07-23 06:50 | NUR ---
NOTIFIED MOTHER JESUS OF ROOM TRANSFER TO [facility].
--- NOTE | 2019-07-23 17:39 | NUR ---
NO ACUTE CHANGES NOTED. PATIENT CONTINUES TO DENIE THOUGHTS OF HURTING HIMSELF. THE PATIENT HAS BEEN TAKEN OFF THE 1:1 SITTER. NO CURRENT COMPLAINTS OF PAIN OR DISCOMFORT NOTED. PATIENT JUST STATES HE IS TRIED AND HAS SPENT MOST OF THE DAY SLEEPING. NO OTHER ISSUES NOTED. WILL CONTINUE TO MONITOR FOR CHANGES.
--- NOTE | 2019-07-23 23:11 | NUR ---
LATE ENTRY EARLIER IN SHIFT PTS SISTER TAMMY CALLED & ASKED TO SPEAK TO PT. HOWEVER THIS FAMILY MEMBER IS NOT ON THE CALL LIST. THE PTS MOTHER & FATHER ASKED FOR US TO NOT GIVE OUT ANY INFORMATION TO THIS SISTER. MOTHER STATED SHE WOULD CALL THE SISTER BACK & TELL HER SHE IS NOT ON THE CALL LIST & ONLY FAMILY MEMEBER WHO KNOW THE SECRET PASS PHRASE ARE ALLOWED TO GET INFORMATION.
[2019-07-24 05:22] LABS: BASOPHILS ABSOLUTE AUTO 0.07 K/mm3 (0.00-0.23); BASOPHILS PERCENT AUTO 1 % (0-2); EOSINOPHILS ABSOLUTE AUTO 0.29 K/mm3 (0.00-0.68); EOSINOPHILS PERCENT AUTO 3 % (0-6); Hemoglobin 15.9 g/dL (13.5-17.5); IMMATURE GRAN ABSOLUTE AUTO 0.05 K/mm3 (0.00-0.10); IMMATURE GRAN PERCENT AUTO 1 % (0-1); LYMPHOCYTES ABSOLUTE AUTO 2.22 K/mm3 (0.84-5.20); LYMPHOCYTES PERCENT AUTO 22 % (21-46); MONOCYTES ABSOLUTE AUTO 0.78 K/mm3 (0.16-1.47); MONOCYTES PERCENT AUTO 8 % (4-13); Mean Corpuscular HGB Conc 33.1 g/dL (31.5-36.5); Mean Corpuscular Volume 85 fL (80-100); Mean Platelet Volume 9.9 fL (9.1-12.4); NEUTROPHILS PERCENT AUTO 66 % (41-73); Platelet Count 283 K/mm3 (150-400); RDW Coefficient Variation 13.2 % (11.7-14.2); RDW Standard Deviation 39.8 fL (35.1-46.3); Red Blood Cell Count 5.68 M/mm3 (4.30-5.90); White Blood Cell Count 9.91 K/mm3 (4.00-11.30)
[2019-07-24 05:51] LABS: Alanine Aminotransfer (ALT/SGP 45 U/L (12-78); Albumin, Blood 3.5 g/dL (3.4-5.0); Albumin/Globulin Ratio 0.8 (0.8-1.8); Alk Phos 101 U/L (50-136); Anion Gap 9 mmol/L (6-16); Aspartate Aminotrans (AST/SGOT 23 U/L (12-37); Bilirubin, Total 0.4 mg/dL (0.1-1.0); Blood Urea Nitrogen 18 mg/dL (8-24); Bun/Creatinine Ratio 21.1 (12.0-20.0); CO2, Blood 18 mmol/L (21-32); Calcium, Blood 9.3 mg/dL (8.5-10.1); Chloride, Blood 111 mmol/L (98-108); Creatinine, Blood 0.86 mg/dL (0.60-1.20); Globulin, Blood 4.2 g/dL (2.2-4.0); Glomerular Filtration Rate >60 (60-); Glucose, Blood 97 mg/dL (70-99); Potassium, Blood 3.7 mmol/L (3.5-5.5); Sodium, Blood 138 mmol/L (136-145); Total Protein, Blood 7.7 g/dL (6.4-8.2)
--- NOTE | 2019-07-24 06:25 | NUR ---
SHIFT SUMMARY AOX4. VSS. DENIES N/V OR DYSPNEA. REPORTED 7/10 CHRONIC PAIN IN JOINTS/BACK. STATES HE NORMALLY TAKES INDOMETHACIN & FLEXERIL FOR HIS CHRONIC PAIN, INFORMED PT HE WOULD PROBABLY NOT GET FLEXERIL WHILE BEING @HOSPITAL SINCE HE OD ON THAT MED. ASKED HOSPITALIST EVIE Rosales FOR SOMETHING FOR PAIN & RECIEVED A OT DOSE OF ULTRAM, WHEN I TOOK MED TO PT HE REPORTED HE NO LONGER NEEDED ANYTHING FOR PAIN & RATED HIS PAIN A 4/10 & STATED IT WAS TOLERABLE. PT DENIES ANY CURRENT SUICIDAL THOUGHTS OR PLANS. ON CAMERA SUPERVISION, CALL LIGHT IN REACH. TM.
[2019-07-24] MEDS ORDERED: THERA1 EACH PO (08:52)
--- NOTE | 2019-07-24 16:07 | NUR ---
ALERT. ORIENTED. COOPERATIVE. SLOW TO RESPOND. ON CAMERA. STS DOES NOT WISH TO HURT HIMSELF. NOTE FROM DR. ELI FOR PATIENTS WORK IS IN FRONT OF CHART. NO ACUTE CHANGES. WCTM.
--- NOTE | 2019-07-24 16:27 | NUR ---
REPORT TO YOSELIN AT [facility]. NOTIFIED MD TO FROM [facility] AND TO EXPECT A CALL. LUTHER TAYLOR NOTIFIED [facility] NEEDS MORE INFO AND SHE WILL FAX IT. PATIENT WILL POSSIBLY BE SENT TO [facility].
--- NOTE | 2019-07-24 19:55 | NUR ---
PT AND FAMILY WERE INTRODUCED TO ONCOMING NURSE. AFFECT WITHDRAWN BUT SMILING NURSE INTRODUCED HIMSELF. UNDERLYING CAUSE DISCUSSED, HIS SELF WORTH WAS EMPHASIZED. AND PT GAVE VERBAL CONTRACT OF NO SELF HARM TONIGHT. ADMINISTRATION IS WORKING ON COBRA DISCHARGE - SEE DOCUMENTATION FOR DETAILS. CALL LIGHT IN REACH. PT IN CONTINUOUS OBSERVATON.
--- NOTE | 2019-07-24 20:09 | NUR ---
WATCHING TV. REMAINS ON CLOSE OBSERVATON FOR SAFETY. GAVE VERBAL NO SELF HARM CONTRACT ALEXIS.
--- NOTE | 2019-07-24 22:25 | NUR ---
cobra discharge scheduled for about 0230 AM. Pt was accompanied to restroom to void, stated felt needed to have BM but the prune juice and apple juice he consumed earlier hasnt worked yet. Back in bed. No noted s/s of self harm voiced or indicated. will continue to monitor.
--- NOTE | 2019-07-25 02:26 | NUR ---
COBRA DISCHARGE TO [facility]. CALL FOR REPORT TO "ROBERT" RN AT [facility]. NOTIFIED OF SUICIDE ATTEMPT ON 07/30/19 - SEE DOCUMENTATION. ([phone]). ROBERT WAS NOTIFIED OF OD ATTEMPT, ALLERGIES, CURRENT MEDS AND THAT HE HAD TRAZADONE 100 MG AT HS PER AUG. VSS. BP 119/77, HR 108, R 16, T 98.7 F, O2 SATS 96% ON ROOM AIR. JUST BEFORE HE WAS PICKED UP WITH [facility] TRANSPORT, VOICED UNDERLYING REASONS OF OD ATTEMPT WAS THAT HE FELT "NO ONE CARED", BUT HAS SINCE REALIZED THAT PEOPLE DO CARE. VOICED HE INTENDED TO FOCUS ON THERAPY. SECURE TRANSPORT AT ROOM, CUSTODY OF PT GIVEN TO SAID TRANSPORTER. LEFT UNIT IN WHEELCHAIR WITH SAID TRANSPORTER.
--- NOTE | 2019-07-25 05:34 | NUR ---
ATTEMPTED TO CALL MOTHER RE PT DISCHRGE, BT UNABLE TO DUE TO INCORRECT NUMBER OF MOTHER IN [facility], NUMBER CALLED SEVERAL TIMES, BUT RESPONSE "THE NUMBER YOU HAVE CALLED IS NOT A WORKING NUMBER". CHARGE NURSE NOTIFIED. CALL THEN PLACED TO PLACE PT BEING TRANSFERRED TO [facility] IN [place], OR, "DINESH" [place] SHE WOULD HAVE HIM CALL HIS MOTHER WHEN HE ARRIVED.
== END 2019-07-25 02:51 | DRG 917 ==
LOC: ER 05:41 → ICUW 06:26 → MEDS 07-23 05:27 → ICUW 07-23 05:27 → MEDS 07-23 05:44
PROVIDERS: Emergency Medicine; Internal Medicine; Internal Medicine Pulmonary Disease; ADMIT Internal Medicine
PROC: 0BH17EZ Insertion of Endotracheal Airway into Trachea, Via Natural or Artificial Opening (ICD-10-PCS; principal; 2019-07-20)
PROC: 5A1945Z Respiratory Ventilation, 24-96 Consecutive Hours (ICD-10-PCS; 2019-07-20)
DX: T48.1X2A Poisoning by skeletal muscle relaxants [neuromuscular blocking agents], intentional self-harm, initial encounter (principal); J96.01 Acute respiratory failure with hypoxia; E87.2 Acidosis; D68.61 Antiphospholipid syndrome; T45.0X2A Poisoning by antiallergic and antiemetic drugs, intentional self-harm, initial encounter; Y92.9 Unspecified place or not applicable; F32.9 Major depressive disorder, single episode, unspecified; F90.9 Attention-deficit hyperactivity disorder, unspecified type; E66.9 Obesity, unspecified; J45.909 Unspecified asthma, uncomplicated; I10 Essential (primary) hypertension; Z68.37 Body mass index [BMI] 37.0-37.9, adult
CPT/HCPCS: 31500; 31720; 36415; 36600; 51702; 71045; 80047; 80048; 80053; 80069; 81001; 82550; 82553; 82803; 82947; 83605; 83690; 83735; 84100; 84443; 84484; 85014; 85025; 87086; 93005; 93010; 94002; 94003; 96361-59; 96374-59; 97110; 97116; 97162; 97530; 99291-25; C9113; G0480; J1650; J2704; J3010; J3475; J3480; J7030

== ENCOUNTER 2019-08-25 11:08 | Observation (INO) | payer OTHER ==
[~2019-08-25] VITALS: Ht 170.2 cm; Wt 127.0 kg
[~2019-08-25 11:08] MED LIST changes: -DIPHEDRYL PO; -Hydroxyzine HCl50 MG PO; -Indomethacin50 MG PO; -LISI20 PO; -ONDA4ODT MM; -Zoloft100 MG PO
[2019-08-25 12:00] LABS: Source, Urine Clean Catch
[2019-08-25 12:05] LABS: BASOPHILS ABSOLUTE AUTO 0.06 K/mm3 (0.00-0.23); BASOPHILS PERCENT AUTO 1 % (0-2); EOSINOPHILS ABSOLUTE AUTO 0.16 K/mm3 (0.00-0.68); EOSINOPHILS PERCENT AUTO 2 % (0-6); Hematocrit 50.5 % (37.0-53.0); Hemoglobin 16.5 g/dL (13.5-17.5); IMMATURE GRAN ABSOLUTE AUTO 0.02 K/mm3 (0.00-0.10); IMMATURE GRAN PERCENT AUTO 0 % (0-1); LYMPHOCYTES PERCENT AUTO 26 % (21-46); MONOCYTES ABSOLUTE AUTO 0.57 K/mm3 (0.16-1.47); MONOCYTES PERCENT AUTO 8 % (4-13); Mean Corpuscular HGB 27.5 pg (26.0-34.0); Mean Corpuscular HGB Conc 32.7 g/dL (31.5-36.5); Mean Corpuscular Volume 84 fL (80-100); NEUTROPHILS PERCENT AUTO 62 % (41-73); Platelet Count 250 K/mm3 (150-400); Red Blood Cell Count 5.99 M/mm3 (4.30-5.90); White Blood Cell Count 7.21 K/mm3 (4.00-11.30)
[2019-08-25 12:18] LABS: Bilirubin, Urine Neg (Neg); Blood, Urine 5+ (Neg); Glucose Qualitative, Urine Neg (Neg); Ketones, Urine Neg (Neg); Leukocyte Esterase, Urine Neg (Neg); Nitrite, Urine Neg (Neg); Protein, Urine 3+ (Neg); Specific Gravity, Urine 1.015 (1.003-1.022); Urobilinogen, Urine NORM (Normal); pH, Urine 6.5 (5.0-8.0)
[2019-08-25 12:27] LABS: Appearance, Urine Clear (Clear); Color, Urine Yellow (P-Yellow)
[2019-08-25 12:28] LABS: Red Blood Cells, Urine 25-50 /hpf (0-2)
[2019-08-25 12:29] LABS: Bacteria Few /hpf; Squamous Epithelial Cells Rare /hpf (Few)
[2019-08-25 12:30] LABS: Alanine Aminotransfer (ALT/SGP 36 U/L (12-78); Albumin, Blood 3.9 g/dL (3.4-5.0); Alk Phos 111 U/L (50-136); Anion Gap 4 mmol/L (6-16); Aspartate Aminotrans (AST/SGOT 28 U/L (12-37); Bilirubin, Total 0.5 mg/dL (0.1-1.0); Blood Urea Nitrogen 21 mg/dL (8-24); Bun/Creatinine Ratio 24.8 (12.0-20.0); CO2, Blood 28 mmol/L (21-32); Calcium, Blood 9.2 mg/dL (8.5-10.1); Chloride, Blood 108 mmol/L (98-108); Creatinine, Blood 0.85 mg/dL (0.60-1.20); Ethanol (Alcohol), Blood, Med <3 mg/dL; Globulin, Blood 3.8 g/dL (2.2-4.0); Glomerular Filtration Rate >60 (60-); Glucose, Blood 95 mg/dL (70-99); Potassium, Blood 4.2 mmol/L (3.5-5.5); Salicylate <1.7 mg/dL (2.8-20.0); Sodium, Blood 140 mmol/L (136-145); Total Protein, Blood 7.7 g/dL (6.4-8.2)
[2019-08-25 12:32] LABS: U Amphetamine Screen Not Detected; U Barbituate Screen Not Detected; U Benzodiazapine Screen Not Detected; U Buprenorphine Screen Not Detected; U Cannabinoids Screen Not Detected; U Cocaine Screen Not Detected; U Methadone Screen Not Detected; U Methamphetamine Screen Not Detected; U Opiates Screen Not Detected; U Oxycodone Screen Not Detected; U Phencyclidine Screen Not Detected; U Propoxyphene Screen Not Detected
[2019-08-25 12:40] LABS: Acetaminophen, Random <2.0 ug/mL (10.0-30.0)
[2019-08-25] MEDS ORDERED: Indomethacin50 MG PO (14:03)
[2019-08-25] MEDS ORDERED: DIPHEDRYL PO (14:04)
[2019-08-25] MEDS ORDERED: Hydroxyzine HCl50 MG PO (14:04)
[2019-08-25] MEDS ORDERED: LISI20 PO (14:05)
[2019-08-25] MEDS ORDERED: Zoloft100 MG PO (14:05)
[2019-08-25] MEDS ORDERED: CYCL10 PO (14:06)
[2019-08-25] MEDS ORDERED: THERA1 EACH PO (14:07)
[2019-08-25] MEDS ORDERED: ESOM20 PO (14:08)
[2019-08-25] MEDS ORDERED: CHLO50 PO (14:08)
[2019-08-25] MEDS ORDERED: QUET100 PO (14:09)
[2019-08-25] MEDS ORDERED: ONDA4ODT MM (14:10)
[2019-08-28] MEDS ORDERED: Vistaril50 MG PO (12:16)
[2019-08-28] MEDS ORDERED: Seroquel200 MG PO (12:16)
[2019-08-28] MEDS ORDERED: Indocin50 MG PO (12:16)
== END 2019-08-28 12:30 | disposition home or self-care (01) ==
LOC: ER 11:08 → EOR 11:37
PROVIDERS: ADMIT Emergency Medicine
DX: S61.512A Laceration without foreign body of left wrist, initial encounter (principal); X78.1XXA Intentional self-harm by knife, initial encounter; F32.9 Major depressive disorder, single episode, unspecified; I10 Essential (primary) hypertension; Z79.899 Other long term (current) drug therapy; Z88.0 Allergy status to penicillin; Z88.8 Allergy status to other drugs, medicaments and biological substances
CPT/HCPCS: 80053; 81001; 84443; 85025; 90471; 90714; 99285-25; C9113; G0378; G0480; Q0163; Q3014

== ENCOUNTER 2020-06-12 12:03 | Emergency (ER) | payer OTHER ==
[~2020-06-12] VITALS: Ht 170.2 cm; Wt 161.0 kg
[~2020-06-12 12:03] MED LIST changes: +CHLO50 PO; +DIPHEDRYL PO; +ESOM20 PO; +Indocin50 MG PO; +LISI20 PO; +ONDA4ODT MM; +Seroquel200 MG PO; +THERA1 EACH PO; +Vistaril50 MG PO
[2020-06-12] MEDS ORDERED: QUET25 PO (16:05)
[2020-06-12] MEDS ORDERED: Hydroxyzine HCl50 MG PO (17:11)
[2020-06-12] MEDS ORDERED: Indomethacin50 MG PO (17:12)
[2020-06-12] MEDS ORDERED: Zoloft100 MG PO (17:12)
[2020-06-12] MEDS ORDERED: OMEP20ER PO (17:15)
[2020-06-12] MEDS ORDERED: CYCL10 PO (17:16)
[2020-06-12 17:43] LABS: BASOPHILS ABSOLUTE AUTO 0.04 K/mm3 (0.00-0.23); BASOPHILS PERCENT AUTO 1 % (0-2); EOSINOPHILS ABSOLUTE AUTO 0.11 K/mm3 (0.00-0.68); EOSINOPHILS PERCENT AUTO 1 % (0-6); Hematocrit 55.5 % (37.0-53.0); Hemoglobin 18.4 g/dL (13.5-17.5); IMMATURE GRAN ABSOLUTE AUTO 0.03 K/mm3 (0.00-0.10); IMMATURE GRAN PERCENT AUTO 0 % (0-1); LYMPHOCYTES ABSOLUTE AUTO 2.36 K/mm3 (0.84-5.20); LYMPHOCYTES PERCENT AUTO 28 % (21-46); MONOCYTES ABSOLUTE AUTO 0.72 K/mm3 (0.16-1.47); MONOCYTES PERCENT AUTO 8 % (4-13); Mean Corpuscular HGB 27.3 pg (26.0-34.0); Mean Corpuscular HGB Conc 33.2 g/dL (31.5-36.5); Mean Corpuscular Volume 82 fL (80-100); Mean Platelet Volume 10.1 fL (9.1-12.4); NEUTROPHILS ABSOLUTE AUTO 5.33 K/mm3 (1.96-9.15); NEUTROPHILS PERCENT AUTO 62 % (41-73); Platelet Count 230 K/mm3 (150-400); RDW Coefficient Variation 12.4 % (11.7-14.2); RDW Standard Deviation 37.4 fL (35.1-46.3); Red Blood Cell Count 6.75 M/mm3 (4.30-5.90); White Blood Cell Count 8.59 K/mm3 (4.00-11.30)
[2020-06-12 18:05] LABS: Alanine Aminotransfer (ALT/SGP 55 U/L (12-78); Albumin, Blood 3.9 g/dL (3.4-5.0); Albumin/Globulin Ratio 0.9 (0.8-1.8); Alk Phos 127 U/L (50-136); Anion Gap 8 mmol/L (6-16); Aspartate Aminotrans (AST/SGOT 37 U/L (12-37); Bilirubin, Total 0.6 mg/dL (0.1-1.0); Blood Urea Nitrogen 15 mg/dL (8-24); Bun/Creatinine Ratio 16.9 (12.0-20.0); CO2, Blood 25 mmol/L (21-32); Calcium, Blood 9.6 mg/dL (8.5-10.1); Chloride, Blood 103 mmol/L (98-108); Creatinine, Blood 0.89 mg/dL (0.60-1.20); Globulin, Blood 4.3 g/dL (2.2-4.0); Glomerular Filtration Rate >60 (60-); Glucose, Blood 96 mg/dL (70-99); Potassium, Blood 4.2 mmol/L (3.5-5.5); Sodium, Blood 136 mmol/L (136-145); Total Protein, Blood 8.2 g/dL (6.4-8.2); Troponin I <0.015 ng/mL (0.000-0.040)
== END 2020-06-12 18:45 | disposition home or self-care (01) ==
LOC: ER 12:03
PROVIDERS: Emergency Medicine
DX: U07.1 COVID-19 (principal); R06.02 Shortness of breath; R53.81 Other malaise; R50.9 Fever, unspecified; R07.2 Precordial pain; I10 Essential (primary) hypertension; F32.9 Major depressive disorder, single episode, unspecified; J45.909 Unspecified asthma, uncomplicated; Z79.899 Other long term (current) drug therapy
CPT/HCPCS: 36415; 71045; 80053; 84484; 85025; 85379; 93005; 93010; 96374; 99285-25; A9270; J1885